=== PATIENT | male | born 1955 | race Caucasian/White ===

== ENCOUNTER 2017-02-14 12:46 | Emergency (ER) | payer SELFPAY ==
[~2017-02-14] VITALS: Ht 167.6 cm; Wt 72.7 kg
[2017-02-14 12:58] VITALS: BP 161/85; PULSE 62; RESP 18; O2SAT 98
[2017-02-14] MEDS ORDERED: MONT10TA23 PO (13:04)
[2017-02-14] MEDS ORDERED: brio INH (13:04)
[2017-02-14] MEDS ORDERED: CETI10CA PO (13:04)
[2017-02-14] MEDS ORDERED: ALBU8.5H2 INHALATION (13:04)
--- NOTE | 2017-02-14 13:13 | ED.REPORT ---
HPI-Dyspnea / Wheezing Date of Service Feb 14, 2017 ED Provider: Kenney Posada MD Jadon is a 61 year old male with a history of asthma who presents to the ED with concerns for a dry cough for the past 48 hours. He reports that he felt febrile yesterday, but did not check his temperature. Pt reports that he has had pneumonia one month ago, so he was concerned for this. He states that he is a non-smoker. He denies any chest pain, diaphoresis or any other symptoms. Pt additionally reports that he has noticed that his blood pressure has been mildly elevated over the past couple of months. Nursing Notes Stated Complaint: COUGH POSS PNEUMONIA Chief Complaint: Respiratory Complaints Nursing Notes Reviewed: Yes Allergies: Coded Allergies: No Known Drug Allergies (Verified Allergy, Unknown, 02/14/17) Scheduled ([brio]) 1 PUFF INH QAM Albuterol HFA (Proair HFA) 8.5 Gm Hfa.aer.ad 2 PUFFS INHALATION Q4H Cetirizine HCl (Zyrtec) 10 Mg Capsule 10 MG PO HS Montelukast (Montelukast) 10 Mg Tablet 10 MG PO QAM General Time Seen by MD: 13:12 Chief Complaint Cough Hx Obtained From: Patient Arrived By: Walk-in Sudden in Onset?: Yes Onset Occurred: Yesterday Symptom Duration: Since onset Location: : None Similar Sx Previous: Yes Past Medical History Past Medical History Reports: Asthma Review of Systems Constitutional: Denies: Chills, Fever, Malaise, Weakness - generalized Respiratory: Reports: Non-productive cough, Denies: Shortness of breath, Wheezing Cardiovascular: Denies: Chest pain, Syncope Musculoskeletal: Denies: Back pain, Neck pain Skin: Denies Diaphoresis Complete sys rev & neg: except as marked. Physical Exam Initial Vital Signs Vital Signs (First) Date Time Temp Pulse Resp B/P Pulse Ox O2 Delivery O2 Flow Rate FiO2 02/14/17 12:58 36.7 62 18 161/85 98 Room Air Initial VS: Reviewed Head / Eyes: Atraumatic, Normocephalic, PERRL Abdomen / GI: Soft, Non-tender, No guarding, No rebound, No distention Back: No CVA tenderness Lymphatic: No lymphadenopathy Skin: Warm, Dry, No cyanosis Neurologic: Alert, Oriented, Nonfocal General/Constitutional: Awake, Alert, Well nourished, Cooperative Neck: Atraumatic, Supple, No meningismus, Full range of motion Respiratory / Chest: Atraumatic, Breath sounds NL, Breath sounds = bilat Persistant rales in the right lung base Cardiovascular: Heart rate NL, Regular rhythm, Heart sounds NL, No gallop, No murmurs, No rubs Interpretation & Diagnostics X-Ray Chest Interpretation Chest Xray Interpretation: IMPRESSION: Possible early left perihilar infiltrate. Recommend followup chest radiograph in 8 weeks to verify resolution and exclude any underlying mass lesions. Dictated by: Tan Colbert M.D. on 02/14/2017 at 13:30 View: AP & lat Interpretation / Wet Read by: Interpret - Radiologist Re-Eval/Medical Decision Med Decision/Clinical Course Chest x-ray does not look like much, patient says he does not feel that sick. He was concerned about the cough and low-grade fever. I told him that my recommendation is watchful waiting for the next day or 2 but that if he does develop a fever greater than 100.6 that he ought to start the antibiotic I will prescribe for him to just hold. I did recommend also follow up in 8 weeks for repeat chest x-ray to assure resolution. Source of Hx: Old records Re-Evaluation/Progress : Time of Eval: 13:43 Patient Status: Condition unchanged Counseled Regarding: Diagnosis, Lab results, When/why to return to ED Discharge & Departure Impression: Primary Impression: Cough Disposition: Home Discharge Condition All VS Reviewed: Yes Condition: Stable Patient Instructions: Acute Cough (ED) Additional Instructions: No obvious pneumonia is seen on the x-ray. Your symptoms are not so severe that I believe treatment is required at this point. I recommend watchful waiting for the next few days. I am hopeful that your symptoms will resolve spontaneously without specific pharmacologic treatment. If your symptoms worsen or if you develop fever greater than 100.6, I recommend that you take the azithromycin prescribed. Follow up in 8 weeks regardless for repeat chest x -ray to assure the abnormality seen today resolves completely. Referrals: Diogo Casillas MD (Family) Scribe Attestation Portions of this note were transcribed by Angelique Johns. I, Dr. Posada personally performed the history, physical exam and medical decision-making; I reviewed and confirmed the accuracy of the information in the transcribed note. Signed by: Azeem Sanders, 02/14/2017 [Time]. copies to: Diogo Casillas MD, Kirk H MD Feb 14, 2017 13:12 BALJIT JOHNS Feb 14, 2017 13:37
--- NOTE | 2017-02-14 13:32 | DRSVH ---
PROCEDURE: X-RAY CHEST, TWO VIEWS ([id number]) INDICATIONS: cough TECHNIQUE: 2 views of the chest were acquired. COMPARISON: None. FINDINGS: Surgical changes and devices: None. Lungs and pleura: No pleural effusions or pneumothorax. Possible ill-defined left perihilar pulmonar y opacity. Otherwise the lungs are are clear. Mediastinum: Mediastinal contours are normal. Heart size is normal. Bones and chest wall: No suspicious bony abnormalities. Soft tissues appear unremarkable. IMPRESSION: Possible early left perihilar infiltrate. Recommend followup chest radiograph in 8 weeks to verify resolution and exclude any underlying mass lesions. Dictated by: Tan Colbert M.D. on 02/14/2017 at 13:30 Approved by: Tan Colbert M.D. on 02/14/2017 at 13:31
[2017-02-14 14:04] VITALS: BP 133/77; PULSE 54; RESP 14; O2SAT 97
== END 2017-02-14 13:58 | disposition home or self-care (01) ==
LOC: SED 12:46
DX: R05 Cough (principal); J45.909 Unspecified asthma, uncomplicated